=== PATIENT | male | born 1990 ===

== ENCOUNTER 2019-01-27 07:36 | Emergency (ER) | payer OTHER ==
[~2019-01-27] VITALS: Ht 162.6 cm; Wt 74.8 kg
[2019-01-27] MEDS ORDERED: FLONASE ALLERG9.9 ML NASAL (09:22)
[2019-01-27] MEDS ORDERED: ALL DAY ALLERGY10 M3 PO (09:22)
[2019-01-27] MEDS ORDERED: IBUPROFEN600 MG PO (09:22)
[2019-01-27] MEDS ORDERED: MUCUS RELIEF600 MG PO (09:22)
== END 2019-01-27 09:30 | disposition home or self-care (01) ==
LOC: ER 07:36
DX: R09.82 Postnasal drip (principal)